=== PATIENT | male | born 1975 | race Two or more races ===

== ENCOUNTER → 2023-08-22 | Emergency (ER) | payer OTHER ==
[~2023-08-22] VITALS: Ht 167.6 cm; Wt 70.3 kg
[~2023-08-22] MED LIST: CIPRO500 MG PO; KETO10TA2 PO
== END | disposition home or self-care (01) ==
LOC: ER 22:43
DX: S93.401A Sprain of unspecified ligament of right ankle, initial encounter (principal); V19.9XXA Pedal cyclist (driver) (passenger) injured in unspecified traffic accident, initial encounter; Y93.89 Activity, other specified; Y92.89 Other specified places as the place of occurrence of the external cause; Y99.9 Unspecified external cause status

== ENCOUNTER 2024-01-08 09:04 | Emergency (ER) | payer OTHER ==
[~2024-01-08] VITALS: Ht 167.6 cm; Wt 72.6 kg
[2024-01-08 11:24] LABS: HEMATOCRIT 36.7 % (39.0-48.0); HEMOGLOBIN 12.7 g/dL (13-16.00); MEAN CELL VOLUME 85.8 fL (80.0-100.00); MEAN CORPUSCULAR HEMOGLOBIN 29.7 pg (27.00-32.0); MEAN CORPUSCULAR HGB CONC 34.6 g/dl (32.0-36.0); PLATELET COUNT 294 K/uL (150-450); RED BLOOD COUNT 4.28 M/uL (4.00-6.00); RED CELL DISTRIBUTION WIDTH 13.9 % (11.5-14.5)
[2024-01-08 11:31] LABS: PH,URINE 5.5 (5.0-8.0); URINE APPEARANCE Clear; URINE BILIRRUBIN Negative (NEGATIVE); URINE BLOOD Large; URINE COLOR Yellow; URINE GLUCOSE Negative (NEGATIVE); URINE LEUKOCYTE Moderate; URINE NITRATE Negative; URINE PROTEIN Negative (NEGATIVE); URINE UROBILINOGEN 0.2 E.U./dl
[2024-01-08 11:36] LABS: URINE BACTERIA 18.8 uL (0.0-1933); URINE EPITHELIAL CELLS 2.3 uL (0.0-38.8); URINE RBC 23.2 uL (0.0-20.8); URINE WBC 318.1 uL (0.0-23.2)
[2024-01-08] MEDS ORDERED: CEFTRIAXONE SODIUM 1,000 MG VIAL IM STA (11:45)
== END 2024-01-08 12:04 | disposition home or self-care (01) ==
LOC: ER 09:05
PROVIDERS: General Practice
DX: R36.9 Urethral discharge, unspecified (principal); R30.0 Dysuria